=== PATIENT | female | born 1995 | race Caucasian/White ===

== ENCOUNTER 2018-02-04 08:24 | Emergency (ER) | payer BC ==
[2018-02-04 08:40] VITALS: BP 127/77
[2018-02-04] MEDS ORDERED: predniSONE TAB* 20 MG PO ONE (08:59)
--- NOTE | 2018-02-04 09:04 | ED ---
Throat Pain/Nasal Congestion - HPI Summary HPI Summary: 22 yr old female with the complaint of sore throat. Onset yesterday, and associated with right tonsilar swelling. No fever, chills, drooling or change in voice. 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 - History of Current Complaint Chief Complaint: UCGeneralIllness Time Seen by Provider: 02/04/18 08:46 - Allergies/Home Medications Allergies/Adverse Reactions: Allergies Allergy/AdvReac Type Severity Reaction Status Date / Time Penicillins Allergy Hives Verified 02/04/18 08:37 Home Medications: Home Medications Allergy Meds 1 tab PO DAILY 02/04/18 [History Confirmed 02/04/18] Naproxen TAB* [Naprosyn 375 mg TAB*] 2 tab PO ONCE 02/04/18 [History Confirmed 02/04/18] PMH/Surg Hx/FS Hx/Imm Hx Previously Healthy: Yes - Surgical History Surgery Procedure, Year, and Place: wisdom teeth Infectious Disease History: No Infectious Disease History: Denies: Traveled Outside the [place] in Last 30 Days - Family History Known Family History: Positive: Hypertension, Other - RA/Hypothyroidism/celiac dis - Social History Occupation: Employed Full-time Alcohol Use: None Substance Use Type: Reports: None Smoking Status (MU): Never Smoked Tobacco Review of Systems Constitutional: Negative Positive: Sore Throat All Other Systems Reviewed And Are Negative: Yes Physical Exam Triage Information Reviewed: Yes Vital Signs On Initial Exam: Initial Vitals Temp Pulse Resp BP Pulse Ox 98.9 F 96 14 127/77 98 02/04/18 08:34 02/04/18 08:34 02/04/18 08:34 02/04/18 08:34 02/04/18 08:34 Vital Signs Reviewed: Yes Appearance: Positive: Well-Appearing, No Pain Distress Skin: Positive: Warm, Skin Color Reflects Adequate Perfusion Eyes: Positive: EOMI ENT: Positive: Pharyngeal erythema, TMs normal, Tonsillar swelling - right side but no midline shift., Uvula midline. Negative: Muffled voice, Hoarse voice Neck: Positive: Supple, Nontender Respiratory/Lung Sounds: Positive: Clear to Auscultation, Breath Sounds Present Cardiovascular: Positive: RRR. Negative: Murmur Abdomen Description: Positive: Nontender Musculoskeletal: Positive: Strength/ROM Intact Neurological: Positive: Sensory/Motor Intact, Alert, Oriented to Person Place, Time, CN Intact II-III Psychiatric: Positive: Normal - Misti Coma Scale Best Eye Response: 4 - Spontaneous Best Motor Response: 6 - Obeys Commands Best Verbal Response: 5 - Oriented Coma Scale Total: 15 Diagnostics - Vital Signs Vital Signs Temp Pulse Resp BP Pulse Ox 02/04/18 08:34 98.9 F 96 14 127/77 98 - Laboratory Lab Statement: Any lab studies that have been ordered have been reviewed, and results considered in the medical decision making process. EENT Course/Dx - Course Course Of Treatment: 22 yr old with sore throat and right tonsil enlarged. DC home FU with PMD, and referral to Dr Becker ENT. - Diagnoses Provider Diagnoses: Tonsillitis, Sore throat Discharge - Sign-Out/Discharge Documenting (check all that apply): Patient Departure - Discharge Plan Condition: Good Disposition: HOME Patient Education Materials: Pharyngitis (ED), Tonsillitis (ED) Referrals: No Primary Care Phys,NOPCP [Primary Care Provider] - [facility] [place] [facility] [Outside] - 1 Day Mati Becker MD [Medical Doctor] - 1 Day - Billing Disposition and Condition Condition: GOOD Disposition: Home
== END 2018-02-04 09:15 | disposition home or self-care (01) ==
LOC: UCCORT 08:24
DX: J03.90 Acute tonsillitis, unspecified (principal); J02.9 Acute pharyngitis, unspecified; Z88.0 Allergy status to penicillin
CPT/HCPCS: 87651; 99212; G0463; J7512

== ENCOUNTER → 2018-06-10 09:27 | Day surgery (SDC) | payer BC ==
[~2018-06-10 09:27] MED LIST: Buffered Lidocaine 0.9% SYRIN* 5 ML/SYR SYRINGE INTRADERM ONE; Dexamethasone IV* 4 MG/ML 1 ML (4 MG) ONE; Famotidine IV* 10 MG/ML 2 ML (20 mg) IV ONE; Famotidine IV* 10 MG/ML 2 ML (20 mg) ONE; Lidocaine 2% PF * 5 ML VIAL ONE; Midazolam* 1 MG/ML 2 ML VIAL (2 MG) ONE; Naloxone* 0.4 MG/ML 1 ML VIAL IV PRN; Ondansetron INJ* 2 MG/ML VIAL IV PRN; Ondansetron INJ* 2 MG/ML VIAL ONE; Propofol* 10 MG/ML 20 ML BTL ONE; fentaNYL* 50 MCG/ML 2 ML VIAL (100 MCG VIAL) IV PRN; fentaNYL* 50 MCG/ML 2 ML VIAL (100 MCG VIAL) ONE
[2018-06-10 13:52] VITALS: BP 116/69
--- NOTE | 2018-06-10 20:56 | OP ---
DATE OF OPERATION: 06/10/18 - SDS DATE OF : [birth year] SURGEON: Gaston Oconnor MD PRE-OP DIAGNOSIS: Chronic tonsillitis. POST-OP DIAGNOSIS: Chronic tonsillitis. OPERATIVE PROCEDURE: Tonsillectomy. INDICATIONS: This 22-year-old female with recurrent tonsillitis, significant odynophagia, dysphagia, frequent infections, missing time from work, elected for surgical management. DESCRIPTION OF PROCEDURE: The patient was taken to the operating room. General anesthetic was given, the patient was intubated. Tongue, mandible, and soft palate were retracted. Coblator was used to remove the tonsils. Once hemostasis was obtained, the patient was awakened, sent to recovery room in stable condition. Instrument and sponge counts were correct. Blood loss was minimal. [id number] #: [id number] MTDD
== END | disposition home or self-care (01) ==
LOC: OR 09:27
PROVIDERS: ATTEND Otolaryngology
DX: J35.01 Chronic tonsillitis (principal)
CPT/HCPCS: 81025; 88304; J1100; J2250; J2405; J2704; J3010